=== PATIENT | female | born 1980 | race Caucasian/White ===

== ENCOUNTER 2020-10-03 21:06 | Emergency (ER) | payer BC ==
[~2020-10-03] VITALS: Ht 165.1 cm; Wt 108.9 kg
[2020-10-03] MEDS ORDERED: TRAMADOL HCL 50 MG TAB PO STA (22:47)
[2020-10-04] MEDS ORDERED: MOTRIN800 MG PO (00:10)
[2020-10-04 00:20] VITALS: BP 149/82
[2020-10-04] MEDS ORDERED: ULTRAM 50MG50 MG PO (00:20)
== END 2020-10-04 00:16 | disposition home or self-care (01) ==
LOC: FSED 21:16
DX: M25.552 Pain in left hip (principal); M25.511 Pain in right shoulder; M25.522 Pain in left elbow; Y04.2XXA Assault by strike against or bumped into by another person, initial encounter; I10 Essential (primary) hypertension
CPT/HCPCS: 71046; 81025; 99283